=== PATIENT | female | born 1980 | race Hispanic/Latino ===

== ENCOUNTER 2021-02-03 14:09 | Emergency (ER) | payer OTHER, SELFPAY ==
--- NOTE | ~2021-02-03 | XR_ITS ---
EXAMINATION: XR ribs LT 2V w CXR 2V INDICATION: Left chest pain TECHNIQUE: PA and lateral views of the chest and 3 views of the left ribs were obtained. COMPARISON: None. FINDINGS: There is mild atelectasis of the lung bases. No pleural effusion or pneumothorax is identif ied. The cardiomediastinal silhouette is normal. No there appear to be nondisplaced fractures of the left fifth and sixth ribs anteriorly. There is also a questionable hematoma of the left breast. IMPRESSION: 1. Possible nondisplaced fractures of the left fifth and sixth ribs and possible left breast hematoma . Reviewed, dictated and finalized at location A. IMPRESSION: 1. Possible nondisplaced fractures of the left fifth and sixth ribs and possibl e left breast hematoma.
[2021-02-03 14:11] VITALS: BP 140/96; PULSE 94; RESP 20; TEMP 36.8; O2SAT 98
--- NOTE | 2021-02-03 14:43 | ED.GENADULT ---
HPI - General Adult General Chief complaint: Chest Pain Stated complaint: chest injury x 1 week ago Time Seen by Provider: 02/03/21 14:36 Source: patient, family and RN notes reviewed Mode of arrival: ambulatory Limitations: no limitations History of Present Illness HPI narrative: Patient is a 40-year-old female who presents to emergency department for evaluation of left chest wall pain after being pressed against a wall by a horse a week ago continues to have pain for which she has been taking ibuprofen pain is worse with deep breathing and palpation denies other injuries or complaints or radiation of pain and on arrival is in the room in no distress presents with friend Related Data Home Medications Medication Instructions Recorded Confirmed tamoxifen mg 02/03/21 02/03/21 Allergies Allergy/AdvReac Type Severity Reaction Status Date / Time No Known Allergies Allergy Verified 02/03/21 14:38 Review of Systems Review of Systems: All systems reviewed & are unremarkable except as noted in HPI and below PMFSH Social History Social History Gender identity (if verbalized by the patient): Female Exam Narrative: Exam Narrative: GENERAL: Well-appearing, well-nourished, and in no acute distress. HEAD: Normocephalic, atraumatic. EYES: PERRLA and EOMI. ENT: Nares clear, no rhinorrhea or epistaxis. Mucous membranes moist. CHEST: Clear to auscultation. No respiratory distress. No wheezes rales or rhonchi. Tenderness of the left breast HEART: Regular rate and rhythm. No murmur heard. Normal peripheral pulses. ABDOMEN: Soft, nontender, nondistended EXTREMITIES: Normal range of motion. No edema. SKIN: Warm, dry, no rash. NEURO: No focal deficits. Alert and oriented x3. PSYCH: Normal mood and affect. Course Course Emergency Course: Patient in the room no distress aware of case findings treatment plan and diagnosis patient with rib fractures will be treated medically and advised to follow with primary care hemodynamically stable ABCs and vital signs intact and stable Vital Signs Vital signs: Vital Signs Temperature 98.2 F 02/03/21 14:11 Pulse Rate 94 02/03/21 14:11 Respiratory Rate 20 02/03/21 14:11 Blood Pressure 140/96 H 02/03/21 14:11 Pulse Oximetry 98 02/03/21 14:11 Temperature 98.2 F 02/03/21 14:11 Pulse Rate 94 02/03/21 14:11 Respiratory Rate 20 02/03/21 14:11 Blood Pressure 140/96 H 02/03/21 14:11 Pulse Oximetry 98 02/03/21 14:11 Medical Decision Making MDM Narrative Medical decision making narrative: Patient with rib fractures no distress will be discharged home with outpatient follow-up Vital Signs Vital Signs: Vital Signs Temperature 98.2 F 02/03/21 14:11 Pulse Rate 94 02/03/21 14:11 Respiratory Rate 20 02/03/21 14:11 Blood Pressure 140/96 H 02/03/21 14:11 Pulse Oximetry 98 02/03/21 14:11 Temperature 98.2 F 02/03/21 14:11 Pulse Rate 94 02/03/21 14:11 Respiratory Rate 20 02/03/21 14:11 Blood Pressure 140/96 H 02/03/21 14:11 Pulse Oximetry 98 02/03/21 14:11 Imaging Data Radiologist's impression: ITS Impressions Ribs w/Chest X-Ray 02/03/21 15:06 IMPRESSION: 1. Possible nondisplaced fractures of the left fifth and sixth ribs and possible left breast hematoma. Discharge Plan Discharge Clinical Impression: Fracture of rib Patient Disposition: Home, Self-Care Condition: Stable Instructions: Antibiotic Form, Rib Fracture (ED) Additional Instructions: Follow up with your primary care provider within 1-2 days to set up for reevaluation. Go to ER for shortness of breath, difficulty breathing, chest pain, fever/chills, weakness, nauseau/vomitting, etc. or any other concerns. Take any prescribed medications as directed. If you do not have a drug allergy to tylenol or motrin and can tolerate it then take tylenol or motrin as needed for discomfo
[2021-02-03] MEDS: HYDROcodone/acetaminophen (*CRX) 5-325 MG TABLET 1 TAB PO (14:53)
[2021-02-03 16:10] VITALS: BP 145/88; PULSE 87; RESP 16; O2SAT 98
== END 2021-02-03 16:10 | disposition home or self-care (01) ==
PROVIDERS: Emergency Provider Emergency Medicine
DX: S22.42XA Multiple fractures of ribs, left side, initial encounter for closed fracture (principal); W55.12XA Struck by horse, initial encounter; W55.19XA Other contact with horse, initial encounter
CPT/HCPCS: 71046; 71100; 99283; A9270